=== PATIENT | male | born 1990 | race Caucasian/White ===

== ENCOUNTER 2017-09-20 06:15 | Emergency (ER) | payer OTHER ==
[~2017-09-20] VITALS: Ht 177.8 cm; Wt 78.5 kg
[2017-09-20] MEDS ORDERED: IBUPROFEN 600600 M1 PO (07:09)
[2017-09-20 07:24] VITALS: BP 112/78
== END 2017-09-20 07:25 | disposition home or self-care (01) ==
LOC: ER 06:15
DX: M25.511 Pain in right shoulder (principal); M25.521 Pain in right elbow; W19.XXXA Unspecified fall, initial encounter; Y93.89 Activity, other specified; Y92.89 Other specified places as the place of occurrence of the external cause; Y99.8 Other external cause status